=== PATIENT | female | born 1995 | race Caucasian/White ===

== ENCOUNTER 2022-12-25 22:36 | Emergency (ER) | payer OTHER, SELFPAY ==
--- NOTE | 2022-12-25 22:30 | RT.EKG_ITS ---
APPROVED REPORT Exam: Resting ECG Reason for Exam: Chest Pain Patient Location: E HR:89 bpm ECG Measurements Heart Rate 89 AXIS TX 162 P 15 QRSd 87 QRS 88 QT 375 T 21 QTc 456 Conclusion Sinus rhythm...normal P axis, V-rate 60- 99
[2022-12-25 22:42] VITALS: BP 116/73; PULSE 98; RESP 16; TEMP 36.6; O2SAT 98
--- NOTE | 2022-12-25 22:45 | DI.RAD_ITS ---
Exam(s) XR CHEST 2V PA LATERAL EXAM: XR CHEST 2V PA LATERAL CLINICAL HISTORY: Chest Pain, Smoker. TECHNIQUE: 2D digital imaging was performed. COMPARISON: No exams were available for comparison FINDINGS: 2 views: Heart size is normal. The mediastinum is not widened. Lungs are clear. No infiltrates nor pleural effusions. IMPRESSION: No acute pulmonary findings. DATA REPOSITORY: RADIATION DOSE DELIVERED:
--- NOTE | 2022-12-25 22:49 | W.ED.GENAD ---
Discharge Plan Disposition Patient Disposition: Home Condition: Stable Discharge Details Clinical Impression: Chest wall pain, Pleuritic pain Primary Care Provider: Cesilia,Local ED Provider: Reyna Hameed Home Meds and New Rx's Prescriptions: No Action No Known Home Meds Discharge Instructions Instructions: Chest Wall Pain (ED) Additional Instructions: At this time no evidence for cardiopulmonary abnormality. No evidence of heart attack. I do not think you have a clot in your lungs. No evidence of pneumonia. Labs and chest x-ray are largely within normal limits. Please consider stopping smoking. Follow up with primary care provider in 3-5 days. Return to ED sooner if any worsening or concerns. Increase oral fluids. Please take Tylenol or Ibuprofen with food every 4-6 hours as needed for pain and swelling. Medical Decision Making 27-year-old female presents to the ER with chief complaint of midsternal left-sided chest pain which began on Saturday while she was sitting in the car. She describes it as sharp intermittent that comes and goes. She denies any cardiac history. She reports that last week she was having some diarrhea and abdominal pain, none currently. She did take 40 mg of Advil prior to arrival. Walking makes the pain worse lying down makes pain better. She is a daily smoker she reports that she vapes. Denies any drugs or alcohol. Denies being on any control. She did have a flight approximately 3 weeks ago. Denies any leg swelling or calf pain. EKG was reviewed by Dr. Maria E Vazquez and myself ER attending, normal sinus rhythm, no old EKG available for review. No STEMI. According to Wells score for PE she is low risk. Also according to PERC rule PE can be ruled out. Initial labs ordered including initial troponin. Patient is low risk for cardiac disease. Differential diagnosis includes URI, costochondritis, chest wall pain musculoskeletal strain. Chest x-ray within normal limits. Labs are largely within normal limits negative troponin. Discussed labs and x-ray results with patient and family verbalized understanding. Instructed to follow-up with PCP they report they are from [place]. All of their questions were answered to the best of my ability. Imaging Data Radiologic Study: Imaging: X-Ray Radiologist's impression: Imaging protocol: Radiologic exam of the chest. Views: 2 views. COMPARISON: No relevant prior studies available. FINDINGS: Lungs: Unremarkable. No consolidation. Pleural spaces: Unremarkable. No pleural effusion. No pneumothorax. Heart/Mediastinum: Unremarkable. No cardiomegaly. Bones/joints: Unremarkable. IMPRESSION: No acute findings. Thank you for allowing us to participate in the care of your patient. Dictated and Authenticated by: Edd Weber MD Lab Data Lab results reviewed: Yes I reviewed the patient's lab results. Labs: Laboratory Tests Range/Units 12/25/22 12/25/22 12/25/22 22:47 22:53 22:53 WBC (4.4-10.8) 10^3/uL 7.82 RBC (3.93-5.22) 10^6/uL 4.33 Hgb (11.2-15.7) g/dL 11.3 Hct (36.0-46.0) % 34.2 L MCV (80-95) fL 79 L MCH (27.0-33.0) pg 26.1 L MCHC (32.0-36.0) % 33.0 RDW (11.7-14.6) % 12.3 Plt Count (130-400) 10^3/uL 239 MPV (8.0-11.0) fL 10.0 Immature Gran % 0.3 Neutrophils % 52.0 Lymphocytes % 34.9 Monocytes % 9.2 Eosinophils % 2.8 Basophils % 0.8 Nucleated RBC % (0.0-0.3) % 0.0 Absolute Neutrophils (1.2-6.7) 10^3/uL 4.07 Absolute Lymphocytes (1.2-3.4) 10^3/uL 2.73 Absolute Monocytes (0.1-0.8) 10^3/uL 0.72 Absolute Eosinophils (0.0-0.7) 10^3/uL 0.22 Absolute Basophils (0.0-0.2) 10^3/uL 0.06 D-Dimer Cancelled Sodium (136-145) mmol/L 140 Potassium (3.5-5.1) mmol/L 4.0 Chloride (98-107) mmol/L 105 Carbon Dioxide (21.0-32.0) mmol/L 26.2 Anion Gap (3-11) mmol/L 8.8 BUN (7-18) mg/dL 14 Creatinine (0.55-1.02) mg/dL 0.8 Est GFR (CKD-EPI 2020) (mL/min/1.73m2) 104.15 Glucose (74-106) mg/dL 91 Calcium (8.5-10.1) mg/dL 8.8 Magnesium (1.8-2.4) mg/dL 2.0 Total Bilirubin (0.2-1.0) mg/dL 0.2 AST (15-37) U/L 13 L ALT (14-59) U/L 18 Alkaline Phosphatase (46-116) U/L 47 Troponin I (<or=60) ng/L < 50 Total Protein (6.4-8.2) g/dL 7.0 Albumin (3.4-5.0) g/dL 3.8 HPI General Mode of arrival: ambulatory. Date/Time Provider Initiated Documentation: 12/25/22 22:37. Limitations to Documentation: no limitations. Information obtained by: patient, RN notes reviewed and old records reviewed. HPI Narrative: 27-year-old female presents to the ER with chief complaint of midsternal left-sided chest pain which began on Saturday while she was sitting in the car. She describes it as sharp intermittent that comes and goes. She denies any cardiac history. She reports that last week she was having some diarrhea and abdominal pain, none currently. She did take 40 mg of Advil prior to arrival. Walking makes the pain worse lying down makes pain better. She is a daily smoker she reports that she vapes. Denies any drugs or alcohol. Denies being on any control. She did have a flight approximately 3 weeks ago. Denies any leg swelling or calf pain. Related Data Home Medications Medication Instructions Recorded Confirmed Unknown [No Known Home Meds] 12/25/22 Allergies Allergy/AdvReac Type Severity Reaction Status Date / Time No Known Allergies Allergy Unverified 12/25/22 22:50 General Stated Complaint: Chest Pain ALAN: 3 Review of Systems All systems reviewed & are unremarkable except as noted in HPI and below Cardiovascular Cardiovascular: Reports chest pain, Reports chest pain with activity, Denies syncope, Denies pedal edema, Denies edema, Denies claudication, Denies leg edema and Denies dyspnea Respiratory Respiratory: Denies dyspnea Gastrointestinal Gastrointestinal: Denies abdominal pain and Reports diarrhea (1 week ago, resolved) Neurologic Neurologic: Denies syncope [facility] All Active Problems (Updated 12/25/22 @ 23:42 by Reyna Hameed NP) Chest wall pain (Acute) Pleuritic pain (Acute) Social History Smoking/Tobacco Use Status: Current every day Tobacco Type: e-cigarettes Smoking risk assessment performed?: Yes Do you feel safe at home: Yes Do you feel safe in your relationship?: Yes Exam Narrative Exam Narrative: Constitutional: Alert and oriented x3. Appears stated age. Normal body habitus. Head: Normocephalic, no trauma. Eyes: Pupils PERRL, Red reflex noted, EOM's intact. Eyelids symmetrical without lesions, discharge, or swelling. ENT: Bilateral TM's WNL, External ear normal to inspection, no mastoid TTP, swelling, or erythema, Nasal turbinates WNL, no nasal discharge. Normal dentition, Posterior pharynx WNL, no exudate. Chest: RRR, Normal S1, S2, distal pulses intact. Resp: Lungs clear to auscultation bilaterally, no wheezes, rales, or rhonchi. Abdomen: Soft, non-distended, Normoactive bowel sounds all 4 quads. Non tender to palpation all 4 quadrants. No masses, no guarding. Musculoskeletal: Normal gait, 5/5 strength to all four extremities. Skin: No suspicious rashes or lesions. Capillary refill less than 2 sec. Neurologic: Cranial nerves II-XII intact. Alert and oriented x 3. Motor: No deficits noted. Sensory: Intact bilaterally all 4 extremities. Hematologic/Lymphatic: No ecchymosis, no lymphadenopathy. Course Vital Signs Vital signs: Vital Signs Temperature 36.6 C 12/25/22 22:42 Pulse 98 H 12/25/22 22:42 Respiratory Rate 16 12/25/22 22:42 Blood Pressure 116/73 12/25/22 22:42 Pulse Oximetry 98 12/25/22 22:42 Temperature 36.6 C 12/25/22 22:42 Temperature Source Oral 12/25/22 22:42 Pulse 98 H 12/25/22 22:42 Respiratory Rate 16 12/25/22 22:42 Blood Pressure 116/73 12/25/22 22:42 Pulse Oximetry 98 12/25/22 22:42 Oxygen Delivery Method Room Air 12/25/22 22:42 Oxygen Flow Rate 0 12/25/22 22:42 Pain Level 6 12/25/22 22:42
[2022-12-25 23:02] LABS: Abs Immature Grans 0.02 10^3/uL (0.0-0.06); Absolute Basophil Count 0.06 10^3/uL (0.0-0.2); Absolute Eosinophil Count 0.22 10^3/uL (0.0-0.7); Absolute Lymphocyte Count 2.73 10^3/uL (1.2-3.4); Absolute Monocyte Count 0.72 10^3/uL (0.1-0.8); Absolute Neutrophil Count 4.07 10^3/uL (1.2-6.7); Basophils % 0.8; Eosinophils % 2.8; HCT 34.2 % (36.0-46.0); HGB 11.3 g/dL (11.2-15.7); Immature Grans % 0.3; Lymphocytes % 34.9; MCH 26.1 pg (27.0-33.0); MCV 79 fL (80-95); Monocytes % 9.2; Platelet Count 239 10^3/uL (130-400); RBC 4.33 10^6/uL (3.93-5.22); RDW 12.3 % (11.7-14.6); RDW-SD 35.6 fL; WBC 7.82 10^3/uL (4.4-10.8)
[2022-12-25 23:24] LABS: ALT 18 U/L (14-59); AST 13 U/L (15-37); Albumin 3.8 g/dL (3.4-5.0); Alkaline Phosphatase 47 U/L (46-116); Anion Gap 8.8 mmol/L (3-11); BUN 14 mg/dL (7-18); Bilirubin, Total 0.2 mg/dL (0.2-1.0); CO2 26.2 mmol/L (21.0-32.0); CREATININE 0.8 mg/dL (0.55-1.02); Calcium 8.8 mg/dL (8.5-10.1); Chloride 105 mmol/L (98-107); Estimated GFR 104.15 (mL/min/1.73m2); Glucose 91 mg/dL (74-106); Sodium 140 mmol/L (136-145); Troponin I < 50 ng/L (<or=60)
--- NOTE | 2022-12-25 23:38 | DI.VRAD_ITS ---
PROCEDURE INFORMATION: Exam: XR Chest Exam date and time: 12/25/2022 11:09 PM Age: 27 years old Clinical indication: Pain; Chest pressure TECHNIQUE: Imaging protocol: Radiologic exam of the chest. Views: 2 views. COMPARISON: No relevant prior studies available. FINDINGS: Lungs: Unremarkable. No consolidation. Pleural spaces: Unremarkable. No pleural effusion. No pneumothorax. Heart/Mediastinum: Unremarkable. No cardiomegaly. Bones/joints: Unremarkable. IMPRESSION: No acute findings. Dictated and Authenticated by: Edd Weber MD. Ordering:MIKALA Orellana MD
== END 2022-12-25 23:48 | disposition home or self-care (01) ==
PROVIDERS: Emergency Provider Registered Nurse Emergency
DX: R07.89 Other chest pain (principal); F17.290 Nicotine dependence, other tobacco product, uncomplicated
CPT/HCPCS: 36415; 80053; 81025; 93005; 99284; 71046; 83735; 84484; 85025; 85379; 93010; 99283